=== PATIENT | female | born 2000 | race Caucasian/White ===

== ENCOUNTER 2022-07-10 13:15 | Outpatient (RCR) | payer OTHER, SELFPAY ==
[2022-06-25 12:39] VITALS: BP 112/64; PULSE 80; RESP 12; TEMP 36.9
[2022-06-25 12:43] VITALS: BMI 29.5
[2022-06-25 13:38] LABS: Amphetamine Screen Urine Not Detected (Not Detect); Barbiturates, Urine Not Detected (Not Detect); Benzodiazepines Screen Urine Not Detected (Not Detect); Cannabinoid Screen Urine POSITIVE (Not Detect); Cocaine Screen Urine Not Detected (Not Detect); Fentanyl, urine Not Detected (Not Detect); Opiate Screen Urine Not Detected (Not Detect); Phencyclidine Screen Urine Not Detected (Not Detect)
--- NOTE | 2022-06-25 14:40 | PC.ADMIT ---
Patient admitted to [facility] on 06/25/2022. 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 Diagnosis include: MDD recurrent, moderate, OCD, Cannabis use disorder. Referred by her therapist, Temi Shankar, PhD . Patient reported increased symptoms of OCR, intrusive thoughts, self-doubt. Patient reports SI without intent or plan. During nursing assessment patient was a/o x 4, attentive with good eye contact. Patient denies SI at time of assessment. Patient has a long standing use of marijuana since age 19. Patient reports using edibles or smoking marijuana 2 to 3 times daily. Patient states she has tried to stop numerous times, reports she has not used for 3 days Patient denies any other substance use. Patient does not smoke cigarettes. Patient does not use any products with caffeine. Medical issues: stomach disorder Patient has had ongoing GI consults and reports probable dx of IBS. Patient denies hx of inpatient hospitalizations, detox/rehab or [facility] admissions. Patient is currently on Prozac 40mg daily. Patient was seen by BLOCK MASON for medication evaluation, Prozac increased to 60mg. Medication reconciliation completed and reviewed with patient. Pharm is [facility] in [place]. Copy of Safety Tool given to patient.
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
--- NOTE | 2022-06-26 07:41 | PC.NURSE ---
case opened in treatment team
--- NOTE | 2022-07-02 13:35 | HO.PHPPROGNO ---
Subjective Subjective Date of Service: 07/02/22 Reason For Visit: OCD,ADHD,cannabis use d/o Medical Problems Affecting Mental Status: No Interim History: States I feel really manic today ?I just feel driven ?. Had caffeine this morning, attributes this to part of her mood. No SI, no safety concerns. Reports 8 hours of sleep last night. Struggling in school, having difficulty focusing on readings. Has not yet started taking fluoxetine 60 mg, has been taking the lower dose of 40 mg. Medication Compliance: Intermittent Side effects from medications: No Attending Groups: Yes Review of Systems Acute medical concerns: No Medical Review of Systems: unchanged Review of Systems Review of Systems Yes all other systems are reviewed and are negative Constitutional: Reports no additional constitutional complaints Mental Status Exam Mental Status Exam Narrative: NAD. No rigoberto/hypomania sx observed. Speech clear, normal rate and rhythm, coherent. Patient Appearance: Well Grooomed and Appropriate Patient Orientation: Person, Place, Time and Situation Level of Consciousness: Awake, Appropriate and Restless (tapping fingers at times) Patient Behavior: Appropriate, Cooperative and Good Eye Contact Mood Description: Expansive Affect Description: Appropriate Patient Cognition Impaired: No Ability to Follow Directions: Excellent Speech Pattern: Clear, Appropriate and Coherent Memory Description: Intact Hallucinations: None Delusions: Not Present Thought Process: Intact Thought Content: positive for Intact and positive for Obsessional Thoughts Depressive Symptoms: Increased Anxiety and Loss of Int. in Activity Judgement: Fair Diagnostics Vital Signs (24Hr): BMI result Body Mass Index 29.5 Assessment & Plan Assessment & Plan (1) OCD (obsessive compulsive disorder): Status: Acute Code(s): F42.9 - Obsessive-compulsive disorder, unspecified Assessment and Plan: States I feel really manic today ?I just feel driven ?. Completed adult ADHD self report scale last week. We reviewed results as they relate to a possible need for further assessment. Patient had scored a 6/6 on part a of the scale, which asks questions regarding difficulty following through on assignments, organization, memory, delaying completion of tasks, feeling fidgety, feeling overly active or compelled to do things. Also discussed similarities between adult ADD and OCD symptoms. Also discussed symptoms of chronic cannabis use. Patient acknowledges that she has symptoms of all 3 at various times. Reports that as a child she had learning difficulties with reading and math. Reports that she has always received good grades, and is currently doing well in her program and now [employer], which is in accelerated master's program. She states that her grades are good, but that she struggles with the reading assignments at times. States that she has trouble at times with memory, forgetting appointments. She states that sometimes she talks fast, but that it balances itself out . She states that she had caffeine today, which may be contributing to her mood. We reviewed nonpharmacological interventions for adult ADHD, including neuro feedback, CBT, ways to help manage restlessness and organization. She stated that she would try several of these methods. Discussed also adding Wellbutrin if she desires. She stated that she would consider this. No SI, no safety concerns. Reports 8 hours of sleep last night, and that sleep has been consistently good. Has not yet started taking fluoxetine 60 mg, has been taking the lower dose of 40 mg. She states she is going to start taking it today. (2) Cannabis use disorder, moderate, dependence: Status: Acute Code(s): F12.20 - Cannabis dependence, uncomplicated Assessment and Plan: Reports abstinence from cannabis for past 6 days. Plan 1. Continue with current [facility] plan of care. 2. Patient to take fluoxetine 60 mg daily. 3. Follow-up as per protocol. Patient educated on: diagnosis, medication risk/benefits, substance abuse and therapeutic strategies Informed Consent: understands Reason for contiued partial hosp. stay Substantial Risk for: inability to function and rapid decompensation Certification I certify that partial hospital treatment is medically necessary due to the symptoms and problems resulting from the patient's mental illness and the failure to treat the patient at the partial hospital level of care would likely result in the patient requiring inpatient psychiatric care which could not be prevented at a less intensive level of care. I spent minutes with the patient and/or on the patient floor today, greater than?50% of which was spent counseling/coordinating care. Discharge Plan Discharge Attending provider: Sandoval Case Medications: New fluoxetine 60 mg tablet 30 mg PO DAILY 30 Days Qty: 15 0RF Discontinued fluoxetine [Prozac] 40 mg Capsule 40 mg PO DAILY No Action fiber Tablet 1 tab PO DAILY polyethylene glycol 3350 [Miralax] 17 gram/dose Powder 17 g PO BID
--- NOTE | 2022-07-09 13:33 | HO.PHPPROGNO ---
Subjective Subjective Date of Service: 07/09/22 Reason For Visit: OCD,ADHD,cannabis use d/o Medical Problems Affecting Mental Status: No Interim History: Describes mood as ?I feel okay ?. Less depressed, less obsessive thoughts. Reports abstinence from cannabis for 14 days. States script for Prozac did not go through, asking for new 1. Has still not called psychiatrist to set appointment. Plans to do so soon. Medication Compliance: Yes Side effects from medications: No Attending Groups: Yes Review of Systems Acute medical concerns: No Medical Review of Systems: unchanged Review of Systems Review of Systems Yes all other systems are reviewed and are negative Constitutional: Reports no additional constitutional complaints Mental Status Exam Mental Status Exam Narrative: NAD. Patient Appearance: Well Grooomed and Appropriate Patient Orientation: Person, Place, Time and Situation Level of Consciousness: Awake and Appropriate Patient Behavior: Appropriate, Cooperative and Good Eye Contact Mood Description: Calm and Appropriate Affect Description: Calm and Appropriate Patient Cognition Impaired: No Ability to Follow Directions: Excellent Speech Pattern: Clear, Appropriate and Coherent Memory Description: Intact Hallucinations: None Delusions: Not Present Thought Process: Intact Thought Content: positive for Intact and positive for Obsessional Thoughts (reports have lessened) Judgement: Good Diagnostics Vital Signs (24Hr): BMI result Body Mass Index 29.5 Assessment & Plan Assessment & Plan (1) Depressed: Qualifiers: Depression Type: major depressive disorder Major depression recurrence: unspecified whether recurrent Active/Remission status: currently active Major depression episode severity: moderate Qualified Code(s): F32.1 - Major depressive disorder, single episode, moderate Status: Acute Code(s): F32.A - Depression, unspecified Assessment and Plan: Patient reports overall improvement in symptoms, much less depressed, less obsessional thoughts. Feels that the increased dose of Prozac has helped, as well as participating in groups. Tolerating dose increase well, no complaints of any type of side effects. Feels stable for discharge at this time. No SI/HI, no safety concerns. Has maintained sobriety from cannabis for 14 days. Patient encouraged to continue, possibly utilized 12 step groups for support. She stated that she would consider this going forward. Script sent to pharmacy for prozac 20mg, as had recently filled the script for 40 mg. Patient was advised to continue with 60 mg daily. (2) Cannabis use disorder, moderate, dependence: Status: Acute Code(s): F12.20 - Cannabis dependence, uncomplicated (3) OCD (obsessive compulsive disorder): Status: Acute Code(s): F42.9 - Obsessive-compulsive disorder, unspecified Plan 1. Patient appears stable for discharge from [facility] at this time. 2. Patient to follow up with outpatient providers going forward. Patient educated on: diagnosis, medication risk/benefits, substance abuse and therapeutic strategies Informed Consent: understands Reason for contiued partial hosp. stay Substantial Risk for: stable for discharge Certification I certify that partial hospital treatment is medically necessary due to the symptoms and problems resulting from the patient's mental illness and the failure to treat the patient at the partial hospital level of care would likely result in the patient requiring inpatient psychiatric care which could not be prevented at a less intensive level of care. I spent minutes with the patient and/or on the patient floor today, greater than?50% of which was spent counseling/coordinating care. Discharge Plan Discharge Attending provider: Sandoval Case Additional Instructions: Temi Shankar PHD 07/10, Number given for Kaye Harry NP Medications: New fluoxetine 20 mg capsule 20 mg PO DAILY 30 Days Qty: 30 0RF Rx Instructions: take 20mg capsule in addition to fluoxetine 40mg daily. Discontinued fluoxetine [Prozac] 40 mg Capsule 40 mg PO DAILY No Action fiber Tablet 1 tab PO DAILY polyethylene glycol 3350 [Miralax] 17 gram/dose Powder 17 g PO BID Stand Alone Forms: Patient Portal Discharge page Patient Education: Depression (DC), Obsessive Compulsive Disorder (DC), Cannabis Abuse (DC)
== END 2022-07-10 23:59 | disposition home or self-care (01) ==
LOC: HO.PHPA 13:15
PROVIDERS: Nurse Practitioner Psychiatric/Mental Health; Visit Provider Psychiatry & Neurology Psychiatry
DX: F42.9 Obsessive-compulsive disorder, unspecified (principal); F32.1 Major depressive disorder, single episode, moderate; F12.20 Cannabis dependence, uncomplicated; Z79.899 Other long term (current) drug therapy
CPT/HCPCS: 80307; 90791; 90792; 90853

== ENCOUNTER 2023-12-15 08:09 | Outpatient (REF) | payer OTHER, SELFPAY ==
[2023-12-20 08:41] LABS: Amphetamine Screen Urine Not Detected (Not Detect); Barbiturates, Urine Not Detected (Not Detect); Benzodiazepines Screen Urine Not Detected (Not Detect); Cannabinoid Screen Urine POSITIVE (Not Detect); Cocaine Screen Urine Not Detected (Not Detect); Fentanyl, urine Not Detected (Not Detect); Opiate Screen Urine Not Detected (Not Detect); Phencyclidine Screen Urine Not Detected (Not Detect)
== END 2023-12-15 08:10 | disposition home or self-care (01) ==
LOC: HO.PHPLNP 08:09
PROVIDERS: Visit Provider Psychiatry & Neurology Psychiatry
DX: F12.20 Cannabis dependence, uncomplicated (principal); F10.20 Alcohol dependence, uncomplicated
CPT/HCPCS: 80307

== ENCOUNTER 2023-12-21 08:24 | Outpatient (REF) | payer OTHER, SELFPAY ==
[2023-12-21 08:45] LABS: MANUAL DIFF FLAG NO
[2023-12-21 09:08] LABS: Estimated Average Glucose 94 mg/dL; Hemoglobin A1c % 4.9 % (<6.0)
[2023-12-21 09:35] LABS: Alanine Aminotransferase 24 U/L (0-31); Albumin Level 4.5 g/dL (3.5-5.0); Alkaline Phosphatase 96 U/L (39-117); Anion Gap 13 (12-20); Aspartate Amino Transferase 23 U/L (5-31); Bilirubin Total 0.3 mg/dL (0.0-1.0); Blood Urea Nitrogen 10 mg/dL (9-16); Carbon Dioxide 28 mmol/L (22-29); Chloride 104 mmol/L (96-108); Cholesterol 156 mg/dL (<200); Estimated Glomerular Filt Rate > 60; Glucose Fasting 90 mg/dL (60-99); HDL Cholesterol 49 mg/dL (>40); LDL Cholesterol Calculated 85 mg/dL (<100); Potassium 4.4 mmol/L (3.3-5.1); Sodium 141 mmol/L (135-145); Total Protein 8.1 g/dL (6.5-8.0); Triglycerides 114 mg/dL (<150)
[2023-12-21 09:39] LABS: Basophils Absolute Auto 0.1 X10*3/uL (0.0-0.2); Basophils Percent Auto 0.5 % (0-2); Eosinophils Absolute Auto 0.1 X10*3/uL (0.0-0.4); Eosinophils Percent Auto 0.9 % (0-4); Hematocrit 38.5 % (37.0-47.0); Hemoglobin 12.8 g/dl (12.0-16.0); Imm Gran Abs Auto 0.05 X10*3/uL (0.00-0.03); Imm Gran Pct Auto 0.5 % (0.0-0.4); Mean Corpuscular HGB Conc 33.2 g/dl (31.0-35.0); Mean Corpuscular Hemoglobin 29.8 pg (27.0-33.0); Mean Corpuscular Volume 89.7 fL (80.0-98.0); Mean Platelet Volume 9.7 fL (9.4-12.3); Monocytes Absolute Auto 0.5 X10*3/uL (0.1-1.2); Neutrophils Absolute Auto 7.2 x10*3/uL (2.0-8.3); Neutrophils Percent Auto 73.1 % (45-73); Platelet Count 410 X10*3/uL (160-400); Red Blood Count 4.29 X10*6/uL (4.20-5.50); Red Cell Distribution Width 11.7 % (11.0-16.0); White Blood Count 9.9 X10*3/uL (4.8-10.8)
[2023-12-21 09:46] LABS: HBS Num1 0.24 mIU/mL (0-7.99); HBc Num1 0.13 S/CO (0.00-0.79); HBsAGNum1 0.32 S/CO (0.00-0.99); HIV AB/AG Nonreactive (Nonreactive); HIV Num 1 0.05 S/CO (0.00-0.99); Hepatitis B Core Antibody Nonreactive (Nonreactive); Hepatitis B Surface Antigen Negative (Negative); ~HepC Num1 0.16 S/CO (0.00-0.79); ~Hepatitis B Surface Antibody NONREACTIVE (Nonreactive); ~Hepatitis C Antibody Nonreactive (Nonreactive)
[2023-12-21 09:53] LABS: TSH reflex Free T4 0.87 uIU/mL (0.32-4.0); Vitamin D 25-OH Total 35.7 ng/mL (>30)
[2023-12-21 11:51] LABS: Folate 9.8 ng/mL (> or = 4.0); Vitamin B12 575 pg/mL (200-900)
== END 2023-12-21 08:25 | disposition home or self-care (01) ==
LOC: HO.LAB 08:24
PROVIDERS: Visit Provider Psychiatry & Neurology Psychiatry
DX: Z11.4 Encounter for screening for human immunodeficiency virus [HIV] (principal); Z13.6 Encounter for screening for cardiovascular disorders; F39 Unspecified mood [affective] disorder
CPT/HCPCS: 36415; 80053; 80061; 82306; 82607; 82746; 83036; 84443; 85025; 86704; 86706; 86803; 87340; 87389

== ENCOUNTER 2023-12-31 09:30 | Outpatient (RCR) | payer BC, SELFPAY ==
[2023-12-15 11:57] VITALS: BMI 25.8
[2023-12-15 11:59] VITALS: BP 110/80; PULSE 70; TEMP 36.6
--- NOTE | 2023-12-15 14:44 | PC.ADMIT ---
Patient is a 23 year old single female who was referred to [facility] by her therapist d/t increased depression with passive SI (no plan or intent to kill herself), anxiety, intrusive thoughts and disordered eating. Patient reports binge drinking alcohol on the weekends 4-9 drinks and vaping marijuana daily. Having cravings for ETOH. Plans to restart Naltrexone which was helpful in the past. Denied any symptoms of alcohol withdrawal. No N/V, no diaphoresis, no tremors. VSS. Patient is alert and oriented x4. Calm and cooperative. Presented with depressed mood and anxious affect. Denied SI currently. history of passive SI. Patient given a copy of her safety plan and I reviewed this with her. Medications reconciled with patient and patient's pharmacy. She has not been taking Prozac consistently. Last dose she thinks was Wednesday or Wednesday. Medication education provided. She is going to review with the psychiatrist at [facility].
--- NOTE | 2023-12-16 08:25 | HO.PHP ---
Attempt to contact pt was made yesterday at 2:30pm, voicemail was left asking pt to call back to discuss an issue with her health insurance. Pt did not call back. Pt contacted by newswriter at 8:10 am today, pt put her mother on the phone as well, both were informed that Jennifer needs to call her insurance today to pick out a behavioral health plan. [facility] was informed yesterday that she does not have a plan so her admission here at [facility] is not covered. Pt states she does not want to receive a bill so will not come in today, will call her insurance to resolve the matter and return tomorrow after issue is resolved. Pt will call back with an update later today.
--- NOTE | 2023-12-16 10:03 | HO.PHP ---
Pt contacted at 10am by PHP to inform her insurance issue has been resolved, pt will return to programming tomorrow.
--- NOTE | 2023-12-16 15:11 | HO.PHP ---
Client's case has been opened and reviewed in team.
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
--- NOTE | 2023-12-23 11:46 | PC.NURSE ---
Patient has a New PCP appointment with [facility] with Eli Caputo Friday July 19, 2024 at 1PM. [address], [place] [address], Office Number [phone]. Patient has a New Patient appointment with [facility]. [address]?[place],?[place]?[address]. [phone]?February 04, 2024 2:30 pm.
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
--- NOTE | 2023-12-28 14:47 | HO.PHP ---
PHP staff followed up with Jennifer to inform her that the provider would like to extend her time till Wednesday and explored if Jennifer was okay with that. Jennifer noted that she is. PHP staff member disclosed that [facility] contacted stating that they are out of network for her insurance and she would have to be responsible to pay until she meets her deductible. Jennifer voiced that she does not want to do that. PHP staff member encouraged her to contact her insurance company to further explore what providers are in network and we can assist from there. Jennifer was receptive.
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
--- NOTE | 2023-12-30 09:23 | HO.PHP ---
At 9:15 am, com writer checked in with pt on the status of her search for a Med Provider through her insurance company. Pt states she contacted [facility] to request a provider as soon as possible, states she was told they will acquire one for her and will contact her in few days with an available Med provider and an appt date. Pt states she also spoke with [facility] provider Dr. Mendoza who will call her in a week to make sure she has the provider appt and enough medication. Pt offered support to assist her in locating a med provider today, Pt states she feels she will be all set and agreed she will call [facility] in 1 week if she has not heard back from them.
--- NOTE | 2023-12-31 22:57 | HO.PHPPROGNO ---
Subjective Subjective Date of Service: 12/31/23 Reason For Visit: OCD,AUD,CUD Interim History: Patient seen for follow up, anticipates discharge at the end of the program today. 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 Reports making gains since at program, obsessiveness has gotten better since start, attributes this improvement to guanfacine, has been taking in afternoon around 3pm and feels more grounded in the evening. Also mood has been stabilizing, rates mood stability at a 6 out 10, started at a 3 or 4 out of 10 at start of PHP. Reports no other acute issues or concerns. Medication compliant, medications well-tolerated. Denies any adverse effects.? Mood is stable.? Denies any hopelessness or SI. Denies thoughts of harming self or others at this time. Denies any aggressive ideation or HI. Denies any paranoia or AH or VH. Sleep, appetite, energy improved. Medication Compliance: Yes Side effects from medications: No Attending Groups: Yes Review of Systems Acute medical concerns: No Mental Status Exam Mental Status Exam Narrative: Alert, oriented, in no acute distress. Calm, cooperative, engaged. Eye contact maintained. Mood better , affect variable, anxious, bright, mood congrient. Speech normal. Thought process scattered, linear, coherent. Thought content related to stressors, denies SI, intention or plan. Denies any aggressive ideation. No paranoia or delusional content elicited. No evidence of psychosis. Insight/ judgment - fair but adequate / fair-tenuous. Diagnostics Vital Signs (24Hr): BMI result Body Mass Index 25.8 Assessment & Plan Assessment & Plan (1) Mood disorder: Status: Acute Code(s): F39 - Unspecified mood [affective] disorder Assessment and Plan: Emotional dysregulation - predominant mood state r/o Bipolar II vs Cyclothymic vs Unipolar depression +/- SIMD +/-ADHD (2) Other impulse disorders: Status: Acute Code(s): F63.89 - Other impulse disorders Assessment and Plan: hx strongly suggestive of ADHD, combined type vs impulsive type rule out concurrent Impulse Control Disorder (as a separate diagnosis from ADHD) (3) Obsessive-compulsive behavior: Status: Acute Code(s): R46.81 - Obsessive-compulsive behavior (4) Cannabis use disorder, moderate, dependence: Status: Acute Code(s): F12.20 - Cannabis dependence, uncomplicated (5) Mental disorder, not otherwise specified: Status: Acute Code(s): F99 - Mental disorder, not otherwise specified Assessment and Plan: history of relational trauma, unstable personality development r/o Complex PTSD vs Other trauma and stress-related disorder r/o Borderline personality traits r/o Eating Disorder (6) Alcohol abuse: Status: Acute Code(s): F10.10 - Alcohol abuse, uncomplicated Plan [facility]charge from [facility] Continue regular medications Refills sent to pharmacy Will defer further medication management to outpatient provider Safety plan reviewed Patient educated on: diagnosis, medication risk/benefits and substance abuse Informed Consent: understands Reason for contiued partial hosp. stay Substantial Risk for: stable for discharge and rapid decompensation Certification I certify that partial hospital treatment is medically necessary due to the symptoms and problems resulting from the patient's mental illness and the failure to treat the patient at the partial hospital level of care would likely result in the patient requiring inpatient psychiatric care which could not be prevented at a less intensive level of care. Total time managing care of this patient today __30__ minutes. Discharge Plan Discharge Attending provider: Jennifer Mendoza Additional Instructions: New PCP appointment with [facility] with Eli Caputo Friday July 19, 2024 at 1PM. [address], [place] [address], Office Number [phone]. [facility]. [address] [facility] [address]?[place],?[place]?[address]. [phone]?February 04, 2024 2:30 pm. Medications: New guanfacine 1 mg tablet extended release 24 hr 1 mg PO DAILY Qty: 20 0RF aripiprazole 5 mg tablet 5 mg PO BEDTIME Qty: 30 0RF Continued Linzess 145 mcg Capsule 145 mcg PO DAILY naltrexone 50 mg Tablet 50 mg PO DAILY 30 Days Qty: 30 0RF fluoxetine 20 mg capsule 20 mg PO DAILY 30 Days Qty: 30 0RF Rx Instructions: take 20mg capsule in addition to fluoxetine 40mg daily. Changed aripiprazole 2 mg tablet 2 mg PO BEDTIME PRN (Reason: as directed) Qty: 20 0RF Discontinued fluoxetine 40 mg Capsule 40 mg PO DAILY Stand Alone Forms: Patient Portal Discharge page Patient Education: Mood Disorders (DC) Print Language: Welsh
== END 2023-12-31 23:59 | disposition home or self-care (01) ==
LOC: HO.PHPA 09:30
PROVIDERS: Visit Provider Psychiatry & Neurology Psychiatry
DX: F39 Unspecified mood [affective] disorder (principal); F63.89 Other impulse disorders; R46.81 Obsessive-compulsive behavior; F12.20 Cannabis dependence, uncomplicated; F10.10 Alcohol abuse, uncomplicated; Z86.59 Personal history of other mental and behavioral disorders; Z79.899 Other long term (current) drug therapy
CPT/HCPCS: 90791; 90853

== ENCOUNTER 2024-05-25 08:30 | Outpatient (RCR) | payer OTHER, SELFPAY ==
[2024-05-09 12:33] VITALS: BP 92/62; PULSE 84; TEMP 36.2
[2024-05-09 12:37] VITALS: BMI 29.6
--- NOTE | 2024-05-09 13:08 | PC.ADMIT ---
Patient is a 23 year old female who was referred to [facility] by her therapist d/t depression, using marijuana multiple times a day thus is not able to do the things she wants to do, and meeting men on dating apps and hooking up with them which she knows is not safe to do. Patient wants to make healthier choices. Longest period of sobriety from marijuana was 12 months. Patient also stopped using alcohol 22 days ago. Stated it got to the point of drinking 1-6 drinks every weekend. Patient is alert and oriented x4. She is calm and cooperative. Thoughts are clear and logical. She presents with depressed mood and anxious affect. Reports some passive suicidal thoughts a few days ago stating, A few days ago had thoughts that this is a lot I would like to take a break . No plan or intention of killing herself. Medications reconciled with patient and patient's pharmacy. She stated she sometimes forgets to take her medications. She reports she has not been taking Naltrexone however is going to start taking this medication again to help with cravings. She currently lives alone in [facility]. 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
--- NOTE | 2024-05-09 16:35 | HO.PHP ---
Pt was called and a voicemail left informing her not to come into PHP tomorrow, 05/10/24 due to an issue with her insurance. Pt informed she will be contacted tomorrow by a PHP staff with an update.
--- NOTE | 2024-05-09 23:59 | P.HPPSP_ITS ---
[facility] Date of Service: 05/09/24 Chief Complaint: OCD,AUD,CUD Sources of Information: patient interviewed, chart reviewed and crisis/core team assessment reviewed [facility] Narrative: Patient is 23 year old single female with history of depression, mood fluctuations, alcohol abuse and cannabis dependence, OCD, risky and promiscuous behaviors who was referred to [facility] by her outpatient therapist. She reports continued with struggles related to poor impulse control, problems with executive function, procrastination and avoidant behaviors, high distractibility attention and other symptoms of untreated ADHD. She reports that she continues on ABilify since her last [facility] stay in December. She reports that she was doing well by the time she was discharged from [facility] but things kind of unraveled and then I was back to smoking and just easily giving into cravings and urges . She continues to engage in promiscuous behaviors. She notes that on a positive note, she has continued to take the ABilify everyday and says overall her mood has been more regulated since starting on the Abilify, my mood has been pretty good, the depression has not come back, and I'm not having any severe mood swings anymore . The dose has not changed and remains at 3.5 mg. She relays some moments of low mood when she gets down on her self for these impulsive behaviors and says in fact she hides this from her family who are unaware of these habits which brings on sense of shame. Intuniv 2 mg in AM has helped with anxiety and feels her thoughts arent as all over the place, feels calmer in my head . Denies any adverse effects. She also mentions I usually feel unsure of myself and avoid thinking about any negative emotions or thoughts, also get a lot of anxiety from overthinking, so smoking makes all these things easier to do . 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 She says she has been brooks and has had only onece encountered a scary situation, but eventually I got the jero to leave . Cannabis used continues almost daily, she used mushrooms for the first time about 2 months ago, and says she continues to avoid alcohol use because it makes even more impulsive than baseline, but admits she did drink earlier this week in anticipation of starting the program. She has not had anything further to drink in the past 2 days. She had been on naltrexone for the past year, however she mentions this was stopped because it was suggested perhaps she no longer needed this. She admits she is currently experiencing some cravings since drinking and is agreeable to restarting the naltrexone. She feels she did well here at [facility] last time because she needs structure. It is difficult to keep herself accountable and struggles in general with organization and prioritizing. Luckily she has been able to manage with school and jobs and does the minimum sometimes to get by. She feels she is capable of more than she does. 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 Past Psychiatric History: Med trials: zoloft, ineffective, had night sweats. Trintellix, ineffective. wellbutrin (X 2 weeks, 2 yrs ago). says (at first I felt insane, then it helped, but stopped). No psychiatric provider. Current therapist: Temi Shankar, PhD (4 months). No history of inpatient, php, detox/rehab, respite. CURRENT MEDICATIONS: ABilify 3.5 mg qd fluoxetine 20 mg qam guanfacine 2 mg qam [facility] Medical History (Updated 05/10/24 @ 01:14 by Jennifer Mendoza MD) IBS (irritable bowel syndrome) Family History: Reports various family members with ADHD, autism spectrum Both parents with ADHD and have tried ADHD meds in the past Also reports a lot of addictive behaviors and anxiety issues in the family Paternal uncle: cocaine and alcohol abuse. Social History: Lives alone in rented apartment in [place]. 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 Has one older sister. Graduated HS, undergrad, and completed Masters degree at [employer]. Substance History: Cannabis dependence Trauma History: Victim, emotional. Reports was bullied in elementary school. Diagnostics Vital Signs (24Hr): Vital Signs - 24 hr 05/09/24 12:33 Temperature 97.2 F Pulse Rate 84 Blood Pressure 92/62 BMI result Body Mass Index 29.6 Meds/Allergies Meds Home Medications ?Medication ?Instructions ?Recorded ?Confirmed ?Type linaclotide 145 mcg capsule 145 mcg PO DAILY 12/15/23 05/09/24 History (Linzess) aripiprazole 2 mg tablet 1 mg PO BEDTIME 05/09/24 05/09/24 History aripiprazole 5 mg tablet 2.5 mg PO BEDTIME 05/09/24 05/09/24 History guanfacine 2 mg tablet,extended 2 mg PO DAILY 05/09/24 05/09/24 History release 24 hr Allergies Allergies Allergy/AdvReac Type Severity Reaction Status Date / Time cefdinir [From Omnicef] Allergy Rash Verified 06/25/22 11:35 Mental Status Exam Mental Status Exam Narrative: Calm, cooperative, engaged. Mood anxious, affect variable, reactive, bright. Speech normal. Thought process scattered, linear, coherent. Thought content related to stressors, executive dysfunction, impulsivity, denies SI, intention or plan. Denies any aggressive ideation. No paranoia or delusional content elicited. No evidence of psychosis. Insight/ judgment - fair but adequate. Assessment & Plan Assessment & Plan (1) Impulse control disorder, unspecified: Status: Acute Code(s): F63.9 - Impulse disorder, unspecified Assessment and Plan: Compulsive Sexual Behavior Disorder (sex addiction) better characterized as specified type of Impulsive Control Disorder, rather than OC-spectrum disorder hx also strongly suggestive of ADHD, combined type > impulsive type alone rule out concurrent ADHD as a separate diagnosis from ICD/CSBD (2) Attention-deficit hyperactivity disorder, unspecified type: Status: Acute Code(s): F90.9 - Attention-deficit hyperactivity disorder, unspecified type Assessment and Plan: combined type > impulsive type alone. FH+ (3) Cannabis use disorder, moderate, dependence: Status: Acute Code(s): F12.20 - Cannabis dependence, uncomplicated Assessment and Plan: r/o cannabis-induced disorder (4) Alcohol abuse: Status: Acute Code(s): F10.10 - Alcohol abuse, uncomplicated Assessment and Plan: r/o SIMD (5) Mood disorder: Status: Acute Code(s): F39 - Unspecified mood [affective] disorder Assessment and Plan: Emotional dysregulation - predominant mood state r/o Bipolar II vs Cyclothymic vs Unipolar depression +/- SIMD +/-ADHD (6) Mental disorder, not otherwise specified: Status: Acute Code(s): F99 - Mental disorder, not otherwise specified Assessment and Plan: history of relational trauma, unstable personality development r/o Complex PTSD vs Other trauma and stress-related disorder r/o Borderline personality traits r/o Eating Disorder Plan Admit to PHP VS reviewed: kiana, BP 92/62; 84 bpm continue other regular medications? continue Abilify 3.5 mg qd (may consider increase to 5 mg) continue clomipramine 25 mg qhs for now continue guanfacine 2 mg qam start topiramate 25-50 mg daily in evening restart naltrexone 50 mg qhs will order lisdexamfetamine 10 mg (?PA required, will likely start later in week or next week) consider low dose VPA if topiramate ineffective Routine lab work ordered EKG, routine for baseline QTc for medication considerations UDS as indicated MassPat reviewed Continue to monitor as per protocol Patient educated on: diagnosis, medication risk/benefits and substance abuse Informed Consent: understands Reason for continued partial hosp. stay Substantial Risk for: inability to function, rapid decompensation and med/psych decompensation Certification I certify that partial hospital treatment is medically necessary due to the symptoms and problems resulting from the patient's mental illness and the failure to treat the patient at the partial hospital level of care would likely result in the patient requiring inpatient psychiatric care which could not be prevented at a less intensive level of care. Time Spent With Patient Time: Total time managing care of this patient today _60___ minutes.
--- NOTE | 2024-05-11 17:11 | HO.PHP ---
Client's case has been opened and reviewed in team.
--- NOTE | 2024-05-12 14:15 | HO.IOP ---
Addendum entered by France Szymanski 05/22/24 15:16: This is a [facility] note Original Note: [facility] staff member faxed over a referral for med management and recovery coaching for Jennifer Ackaren. PHP staff member is awaiting a phone call with the appointment dates and times.
--- NOTE | 2024-05-12 15:45 | P.PNPSP_ITS ---
Subjective Subjective Date of Service: 05/12/24 Reason For Visit: OCD,AUD,CUD Interim History: Returned call to patient who requested to speak with me, to inform me that her mother voiced some reservations about being prescribed a controlled substance and concerned specifically about addiction. She shares that her mother and father both carry diagnoses for ADHD but doesnt think her mother takes anything for it. My mom isn't really a fan of me being on that medication in general . She says she doesnt feel her parents really understand how much she really struggles. She admits there are things she does not share with them because they would freak out particularly around risky behaviors and are unaware of her struggles with addictive behaviors and impulsivity. SHe suspects they know to some degree that she is impulsive. However they also seem to believe you can decide to feel or not feel a certain way. She asks if I could speak with her mother, and we agree to hold off until we meet next week to discuss further and if it seems to make sense to reach out to her mother to include her in the conversation together. Medication Compliance: Yes Side effects from medications: No Attending Groups: Yes Review of Systems Acute medical concerns: No Mental Status Exam Mental Status Exam Narrative: Calm, cooperative, engaged. Mood anxious, affect variable, reactive, bright. Speech normal. Thought process scattered, linear, coherent. Thought content related to stressors, executive dysfunction, impulsivity, denies SI, intention or plan. Denies any aggressive ideation. No paranoia or delusional content elicited. No evidence of psychosis. Insight/ judgment - fair but adequate. Diagnostics Vital Signs (24Hr): BMI result Body Mass Index 29.6 Assessment & Plan Assessment & Plan (1) Impulse control disorder, unspecified: Status: Acute Code(s): F63.9 - Impulse disorder, unspecified Assessment and Plan: Compulsive Sexual Behavior Disorder (sex addiction) better characterized as specified type of Impulsive Control Disorder, rather than OC-spectrum disorder hx also strongly suggestive of ADHD, combined type > impulsive type alone rule out concurrent ADHD as a separate diagnosis from ICD/CSBD (2) Attention-deficit hyperactivity disorder, unspecified type: Status: Acute Code(s): F90.9 - Attention-deficit hyperactivity disorder, unspecified type Assessment and Plan: combined type > impulsive type alone. FH+ (3) Cannabis use disorder, moderate, dependence: Status: Acute Code(s): F12.20 - Cannabis dependence, uncomplicated Assessment and Plan: r/o cannabis-induced disorder (4) Alcohol abuse: Status: Acute Code(s): F10.10 - Alcohol abuse, uncomplicated Assessment and Plan: r/o SIMD (5) Mood disorder: Status: Acute Code(s): F39 - Unspecified mood [affective] disorder Assessment and Plan: Emotional dysregulation - predominant mood state r/o Bipolar II vs Cyclothymic vs Unipolar depression +/- SIMD +/-ADHD (6) Mental disorder, not otherwise specified: Status: Acute Code(s): F99 - Mental disorder, not otherwise specified Assessment and Plan: history of relational trauma, unstable personality development r/o Complex PTSD vs Other trauma and stress-related disorder r/o Borderline personality traits r/o Eating Disorder Plan continue Abilify 3.5- 5 mg qd start lisdexamfetamine 10 mg qd (may consider alternatives such as modafinil or memantine or guanfacine ER) continue clomipramine 25 mg qhs for now continue guanfacine 2 mg qam for now continue topiramate 25-50 mg daily in evening continue naltrexone 50 mg qhs consider low dose VPA if topiramate ineffective Routine lab work ordered EKG, routine for baseline QTc for medication considerations UDS as indicated MassPat reviewed Continue to monitor as per protocol Patient educated on: diagnosis, medication risk/benefits and substance abuse Informed Consent: understands Reason for contiued partial hosp. stay Substantial Risk for: rapid decompensation and med/psych decompensation Certification I certify that partial hospital treatment is medically necessary due to the symptoms and problems resulting from the patient's mental illness and the failure to treat the patient at the partial hospital level of care would likely result in the patient requiring inpatient psychiatric care which could not be prevented at a less intensive level of care. Total time managing care of this patient today _30___ minutes. Discharge Plan Discharge Attending provider: Jennifer Mendoza Medications: New topiramate 25 mg tablet 25 - 50 mg PO DAILY Qty: 20 0RF Rx Instructions: in the late afternoon/evening lisdexamfetamine 10 mg capsule 10 mg PO QAM Qty: 30 0RF Rx Instructions: Partial Fill upon patient request. Continued Linzess 145 mcg Capsule 145 mcg PO DAILY naltrexone 50 mg Tablet 50 mg PO DAILY 30 Days Qty: 30 0RF Rx Instructions: Patient is currently not taking. Would like to restart. fluoxetine 20 mg capsule 20 mg PO DAILY 30 Days Qty: 30 0RF Rx Instructions: Patient no longer taking. Last filled January 2024 for 30 day supply. aripiprazole 5 mg tablet 2.5 mg PO BEDTIME Patient Comments: Patient stated she takes both a 1/2 of a 2 mg tab and 1/2 of a 5 mg tab at bedtime. Rx Instructions: Take 1/2 tab at bedtime aripiprazole 2 mg tablet 1 mg PO BEDTIME Rx Instructions: Take 1/2 tab at bedtime. guanfacine 2 mg tablet extended release 24 hr 2 mg PO DAILY Stand Alone Forms: Patient Portal Discharge page Print Language: Bengali Telehealth Telehealth Telehealth Platform: Telephone
--- NOTE | 2024-05-19 22:41 | P.PNPSP_ITS ---
Subjective Subjective Date of Service: 05/19/24 Reason For Visit: OCD,AUD,CUD Interim History: I'm doing well . Patient was unable to stay to meet but we spoke over the phone. She reports her mood is overall good, stable. Denies any mood swings, hopelessness or SI. Denies any issues or concerns.Cannabis us occasionally, not everyday. Continues with complaints of poor attention/focus, impulsivity and executive dysfunction. She says she has not been able to start on the Vyvanse as it is not in stock. She was encouraged to call pharmacies in her area to see if there is somewhere else that may have it in stock. I checked in with her later and she found that [facility] [address] [place] was in stock so I sent over Vyvanse script there. Will follow up next week. Medication Compliance: Yes Side effects from medications: No Attending Groups: Yes Review of Systems Acute medical concerns: No Mental Status Exam Mental Status Exam Narrative: Calm, cooperative, engaged. Mood anxious, affect variable, reactive, bright. Speech normal. Thought process scattered, linear, coherent. Thought content related to stressors, executive dysfunction, impulsivity, denies SI, intention or plan. Denies any aggressive ideation. No paranoia or delusional content elicited. No evidence of psychosis. Insight/ judgment - fair but adequate. Diagnostics Vital Signs (24Hr): BMI result Body Mass Index 29.6 Assessment & Plan Assessment & Plan (1) Impulse control disorder, unspecified: Status: Acute Code(s): F63.9 - Impulse disorder, unspecified Assessment and Plan: Compulsive Sexual Behavior Disorder (sex addiction) better characterized as specified type of Impulsive Control Disorder, rather than OC-spectrum disorder hx also strongly suggestive of ADHD, combined type > impulsive type alone rule out concurrent ADHD as a separate diagnosis from ICD/CSBD (2) Attention-deficit hyperactivity disorder, unspecified type: Status: Acute Code(s): F90.9 - Attention-deficit hyperactivity disorder, unspecified type Assessment and Plan: combined type > impulsive type alone. FH+ (3) Cannabis use disorder, moderate, dependence: Status: Acute Code(s): F12.20 - Cannabis dependence, uncomplicated Assessment and Plan: r/o cannabis-induced disorder (4) Alcohol abuse: Status: Acute Code(s): F10.10 - Alcohol abuse, uncomplicated Assessment and Plan: r/o SIMD (5) Mood disorder: Status: Acute Code(s): F39 - Unspecified mood [affective] disorder Assessment and Plan: Emotional dysregulation - predominant mood state r/o Bipolar II vs Cyclothymic vs Unipolar depression +/- SIMD +/-ADHD (6) Mental disorder, not otherwise specified: Status: Acute Code(s): F99 - Mental disorder, not otherwise specified Assessment and Plan: history of relational trauma, unstable personality development r/o Complex PTSD vs Other trauma and stress-related disorder r/o Borderline personality traits r/o Eating Disorder Plan start lisdexamfetamine 10 mg qam (for now limit to 3x/wk) continue Abilify 3.5 mg qd (may consider increase to 5 mg) continue clomipramine 25 mg qhs for now continue guanfacine 2 mg qam for now continue topiramate 25-50 mg daily in evening patient declining to restart naltrexone 50 mg qhs, says she does not feel it was effective Routine lab work ordered EKG, routine for baseline QTc for medication considerations UDS as indicated MassPat reviewed Continue to monitor as per protocol Patient educated on: diagnosis, medication risk/benefits and substance abuse Informed Consent: understands Reason for contiued partial hosp. stay Substantial Risk for: inability to function, rapid decompensation and med/psych decompensation Certification I certify that partial hospital treatment is medically necessary due to the symptoms and problems resulting from the patient's mental illness and the failure to treat the patient at the partial hospital level of care would likely result in the patient requiring inpatient psychiatric care which could not be prevented at a less intensive level of care. Total time managing care of this patient today _30___ minutes. Discharge Plan Discharge Attending provider: Jennifer Mendoza Additional Instructions: 05/30/2024? ?10:00 AM - 11:00 AM CHD Adult Comprehensive Assessment Prog: [facility] Clinic Site: [address] [place] [address] Staff: FAB SO 06/02/2024? ?2:00 PM - 03:00 PM Psychiatric E/M New - Face to Face v2 Prog: Psychiatric Services Site: [address] [place] [address] Staff: SHERRY STRATTON Medications: New topiramate 25 mg tablet 25 - 50 mg PO DAILY Qty: 20 0RF Rx Instructions: in the late afternoon/evening Continued Linzess 145 mcg Capsule 145 mcg PO DAILY naltrexone 50 mg Tablet 50 mg PO DAILY 30 Days Qty: 30 0RF Rx Instructions: Patient is currently not taking. Would like to restart. fluoxetine 20 mg capsule 20 mg PO DAILY 30 Days Qty: 30 0RF Rx Instructions: Patient no longer taking. Last filled January 2024 for 30 day supply. aripiprazole 5 mg tablet 2.5 mg PO BEDTIME Patient Comments: Patient stated she takes both a 1/2 of a 2 mg tab and 1/2 of a 5 mg tab at bedtime. Rx Instructions: Take 1/2 tab at bedtime aripiprazole 2 mg tablet 1 mg PO BEDTIME Rx Instructions: Take 1/2 tab at bedtime. guanfacine 2 mg tablet extended release 24 hr 2 mg PO DAILY lisdexamfetamine 10 mg capsule 10 mg PO QAM Qty: 30 0RF Rx Instructions: Partial Fill upon patient request. Stand Alone Forms: Patient Portal Discharge page Print Language: Filipino Telehealth Telehealth Telehealth Platform: Telephone
--- NOTE | 2024-05-22 15:16 | HO.PHP ---
PHP staff member received an email with [facility] provider appointments, which are on: 05/30/2024? ?10:00 AM - 11:00 AM CHD Adult Comprehensive Assessment Prog: [facility] Site: [address] [place], [place] [id number] Staff: FAB SO 06/02/2024? ?2:00 PM - 03:00 PM Psychiatric E/M New - Face to Face v2 Prog: Psychiatric Services Site: [address] [place] [address] Staff: SHERRY STRATTON
--- NOTE | 2024-05-23 08:15 | HO.PHP ---
PHP admin, Ximena, informed the PHP team that Jennifer will not be in attendance to program today due to having a migraine. Jennifer reported no safety concerns.
--- NOTE | 2024-05-25 10:07 | HO.PHP ---
[facility] staff member rescheduled Jennifer's med provider intake appointment and med provider appointment for med management for CHD. The new appointment dates provided are: 06/05/2024? ?10:00 AM - 11:00 AM [facility] Adult Comprehensive Assessment Prog: [facility] Site: [address] [place] [address] Staff: FAB SO 07/03/2024? ?11:00 AM - 12:00 PM Psychiatric E/M New - Face to Face v2 Prog: Psychiatric Services Site: [address] [place] [address] Staff: SHERRY STRATTON
--- NOTE | 2024-05-25 22:28 | P.PNPSP_ITS ---
Subjective Subjective Date of Service: 05/25/24 Reason For Visit: OCD,AUD,CUD Interim History: Been great. MOod is better with dose of ABilify at 5 mg. Feels very steady now, and says it's a better fit . She has had some difficulty explaining to her mother how ADHD and impulsivity interfere with consistency and life, and especially in terms of impulsive urges and hypersexual behavior of which much of these problems she does not share with her mother, so understandably her mother does not appreciate the ways it affects her decisions. She says her mom has always blamed things on her weed consumption, and is concerned about her becoming an addict on Vyvanse. We include her mother on an extended call (>20 min) to discuss her concerns and also to provide information about ADHD without sharing specific problemed behaviors that the patient contends with. I spoke in general about the ways someone with ADHD struggles and how it impacts their everyday life as well as the negative outcomes often associated with untreated ADHD. Mom was receptive and agreed to discuss further with patient. Once call ended I also encouraged patient to continue discussion with her mother and to discuss this with her therapist who may help her navigate further discussions around her risky behavi ors in order to help keep her safe and accountable. Medication compliant, medications well-tolerated. Denies any adverse effects.? Mood is stable.? Denies any hopelessness or SI. Denies thoughts of harming self or others at this time. Denies any aggressive ideation or HI. Denies any paranoia or AH or VH. Sleep, appetite, energy stable. Medication Compliance: Yes Side effects from medications: No Attending Groups: Yes Review of Systems Acute medical concerns: No Mental Status Exam Mental Status Exam Narrative: Calm, cooperative, engaged. Mood anxious, affect variable, reactive, bright. Speech normal. Thought process scattered, linear, coherent. Thought content related to stressors, executive dysfunction, impulsivity, denies SI, intention or plan. Denies any aggressive ideation. No paranoia or delusional content elicited. No evidence of psychosis. Insight/ judgment - fair but adequate. Diagnostics Vital Signs (24Hr): BMI result Body Mass Index 29.6 Assessment & Plan Assessment & Plan (1) Attention-deficit hyperactivity disorder, unspecified type: Status: Acute Code(s): F90.9 - Attention-deficit hyperactivity disorder, unspecified type Assessment and Plan: combined type > impulsive type alone. FH+ (2) Impulse control disorder, unspecified: Status: Acute Code(s): F63.9 - Impulse disorder, unspecified Assessment and Plan: Compulsive Sexual Behavior Disorder (sex addiction) better characterized as specified type of Impulsive Control Disorder, rather than OC-spectrum disorder hx also strongly suggestive of ADHD, combined type > impulsive type alone rule out concurrent ADHD as a separate diagnosis from ICD/CSBD (3) Cannabis use disorder, moderate, dependence: Status: Acute Code(s): F12.20 - Cannabis dependence, uncomplicated Assessment and Plan: r/o cannabis-induced disorder (4) Alcohol abuse: Status: Acute Code(s): F10.10 - Alcohol abuse, uncomplicated Assessment and Plan: r/o SIMD (5) Mood disorder: Status: Acute Code(s): F39 - Unspecified mood [affective] disorder Assessment and Plan: Emotional dysregulation - predominant mood state r/o Bipolar II vs Cyclothymic vs Unipolar depression +/- SIMD +/-ADHD (6) Mental disorder, not otherwise specified: Status: Acute Code(s): F99 - Mental disorder, not otherwise specified Assessment and Plan: history of relational trauma, unstable personality development r/o Complex PTSD vs Other trauma and stress-related disorder r/o Borderline personality traits neurodivergent traits r/o ASD (unlikely, too secure in social skills, interpersonal dynamics) Plan Discharge from [facility] start lisdexamfetamine 10 mg qam (for now limit to 3x/wk) continue guanfacine 2 mg qam and may try an additional 1 mg in evening continue Abilify 5 mg qd continue naltrexone 50 mg qhs continue topiramate 25-50 mg daily in evening patient declining to restart naltrexone 50 mg qhs, says she does not feel it was effective clomipramine discontinued Routine lab work still pending Refills sent to pharmacy Will defer further medication management to outpatient provider *Safety plan reviewed *Discharge diagnoses, treatment course, discharge plan have been reviewed with patient (including medication regime, medication management, potential side effects) as well as treatment rationale were also revisited *Discharge paperwork signed and given to patient, copy sent for scanning to niurka [facility]ster Patient educated on: diagnosis, medication risk/benefits and substance abuse Informed Consent: understands Reason for contiued partial hosp. stay Substantial Risk for: med/psych decompensation Certification I certify that partial hospital treatment is medically necessary due to the symptoms and problems resulting from the patient's mental illness and the failure to treat the patient at the partial hospital level of care would likely result in the patient requiring inpatient psychiatric care which could not be prevented at a less intensive level of care. Total time managing care of this patient today __45__ minutes. Discharge Plan Discharge Attending provider: Jennifer Mendoza Additional Instructions: 06/05/2024? ?10:00 AM - 11:00 AM CHD Adult Comprehensive Assessment Prog: [facility] Clinic Site: [address] [place] [address] Staff: FAB SO 07/03/2024? ?11:00 AM - 12:00 PM Psychiatric E/M New - Face to Face v2 Prog: [facility] Site: [address] [place] [address] Staff: SHERRY STRATTON Medications: New topiramate 25 mg tablet 25 - 50 mg PO DAILY Qty: 20 0RF Rx Instructions: in the late afternoon/evening Continued Linzess 145 mcg Capsule 145 mcg PO DAILY naltrexone 50 mg Tablet 50 mg PO DAILY 30 Days Qty: 30 0RF Rx Instructions: Patient is currently not taking. Would like to restart. fluoxetine 20 mg capsule 20 mg PO DAILY 30 Days Qty: 30 0RF Rx Instructions: Patient no longer taking. Last filled January 2024 for 30 day supply. aripiprazole 5 mg tablet 2.5 mg PO BEDTIME Patient Comments: Patient stated she takes both a 1/2 of a 2 mg tab and 1/2 of a 5 mg tab at bedtime. Rx Instructions: Take 1/2 tab at bedtime aripiprazole 2 mg tablet 1 mg PO BEDTIME Rx Instructions: Take 1/2 tab at bedtime. guanfacine 2 mg tablet extended release 24 hr 2 mg PO DAILY lisdexamfetamine 10 mg capsule 10 mg PO QAM Qty: 30 0RF Rx Instructions: Partial Fill upon patient request. Stand Alone Forms: Patient Portal Discharge page Patient Education: Mood Disorders (DC), ADHD in Adults (ED), ADHD in Adults (DC), ADHD in Adults (GEN) Print Language: Tongan
== END 2024-05-25 23:59 | disposition home or self-care (01) ==
LOC: HO.PHPA 08:30
PROVIDERS: Visit Provider Psychiatry & Neurology Psychiatry
DX: F63.89 Other impulse disorders (principal); F90.9 Attention-deficit hyperactivity disorder, unspecified type; F12.20 Cannabis dependence, uncomplicated; F10.10 Alcohol abuse, uncomplicated; F39 Unspecified mood [affective] disorder; F99 Mental disorder, not otherwise specified; Z79.899 Other long term (current) drug therapy
CPT/HCPCS: 90853